=== PATIENT | female | born 1965 | race Caucasian/White ===

== ENCOUNTER 2017-05-27 10:08 | Day surgery (SDC) | payer OTHER ==
--- NOTE | 2017-05-27 11:28 | Operative Note ---
Upper GI Endoscopy Procedure date: 05/27/17 Date of : 69 Procedure:Upper GI Endoscopy Esophagogastroduodenoscopy with cold biopsies Indications: Mrs. Felton is a 51-year-old female who is here for diagnostic upper endoscopy. She does have severe excruciating outs of epigastric pain which can be very gripping and associated with vomiting. This has been going on for nearly 3 years. Her last attack of pain was in March 2017 and she developed syncope with her attack. She does report moderate bloating. She also has chronic constipation and reports having a bowel movement once monthly. She did have a laparoscopic cholecystectomy 13 years ago secondary to gallbladder sludge and symptomatic gallbladder disease. The patient reports no heartburn, reflux, dysphagia, nausea , early satiety or belching. She reports no melena or weight loss. She does state that her pain can sometimes radiate into the back. It is not related to meals or stress. The patient did undergo a CAT scan which was reportedly normal. This is her first upper endoscopy. Performing Provider: Darrell Marie MD Referring Provider: Torsten Wilder M.D. Sedation: Fentanyl 200 mg IV/Versed 12 mg IV Procedure: Prior to the procedure, a history and physical exam was performed, and patients medications and allergies were reviewed. The risks and benefits of the procedure and the sedation options and risks were discussed with the patient. All questions were answered and informed consent was obtained. The patient was brought to the procedure room. Patient identification and proposed procedure were verified by the physician and the nurse. The patient was placed in a left lateral decubitus position and the scope was passed under direct vision. Throughout the procedure, the patient's blood pressure, pulse, and oxygen saturations were monitored continuously. The endoscope was introduced through the mouth, and advanced to the second part of duodenum. The upper GI endoscopy was accomplished without difficulty. The patient tolerated the procedure well. Findings: The scope was passed directly into the upper esophagus and advanced to the third portion of the duodenum. The post bulbar duodenum and duodenal bulb were normal with normal mucosa and conniventes. The ampulla was prominent. The scope was withdrawn through a normal duodenal bulb and pylorus into the stomach. There was some linear erythema of the antrum with mild pylorospasm. There was some bile reflux. The remainder of the antrum, body and fundus of the stomach were grossly normal. Upon retroflexion there was a very small sliding hiatal hernia. 2 biopsies were taken in the antrum and along the lesser curvature for histology. The scope was then withdrawn into the esophagus. There were at least 2 tongues of salmon-colored mucosa that were biopsied to exclude intestinal metaplasia/ short segment Iqbal's esophagus. There was no evidence of reflux esophagitis. The remainder of the esophageal mucosa was normal. Immediate complications: None EBL (ml): 0 Impression: 1. Nonerosive gastroesophageal reflux disease with very small sliding hiatal hernia and possible short segment Iqbal's esophagus 2. Bile reflux with mild linear reactive gastritis and mild pylorospasm Recommendations: I will follow-up the biopsies. I do feel that the patient has significant functional dyspepsia/functional bowel disease with IBS constipation. I am going to recommend a fiber bowel regimen and treatment for visceral sensitivity. I would like to check liver and pancreatic chemistries today. If these are normal, I would consider colonoscopy for diagnostic purposes. If the pancreatic and biliary chemistries were slightly elevated, would explore a biliary etiology with possible minor choledocholithiasis/biliary sludge or sphincter of Oddi dysfunction. at [id number]
[2017-05-27 12:54] LABS: HEMOGLOBIN 12.9 g/dL (12.2-16.2); LYMPH # 0.9 K/mm3 (0.7-4.5)
[2017-05-27 12:59] LABS: BUN 13 mg/dL (7-18); GFR (ESTIMATED) 89 ML/MIN (59-)
[2017-05-27 13:53] VITALS: BP 116/71
== END 2017-05-27 12:40 | disposition home or self-care (01) ==
LOC: SDC 10:08
PROVIDERS: Internal Medicine Gastroenterology
PROC: 0DB78ZX Excision of Stomach, Pylorus, Via Natural or Artificial Opening Endoscopic, Diagnostic (ICD-10-PCS; 2017-05-27)
PROC: 0DB68ZX Excision of Stomach, Via Natural or Artificial Opening Endoscopic, Diagnostic (ICD-10-PCS; 2017-05-27)
PROC: 0DB58ZX Excision of Esophagus, Via Natural or Artificial Opening Endoscopic, Diagnostic (ICD-10-PCS; principal; 2017-05-27 11:00)
DX: K29.50 Unspecified chronic gastritis without bleeding (principal); K31.3 Pylorospasm, not elsewhere classified; K21.9 Gastro-esophageal reflux disease without esophagitis; K44.9 Diaphragmatic hernia without obstruction or gangrene; K30 Functional dyspepsia; K58.9 Irritable bowel syndrome, unspecified; Z90.49 Acquired absence of other specified parts of digestive tract; Z79.899 Other long term (current) drug therapy